=== PATIENT | female | born 1935 | race Caucasian/White ===

== ENCOUNTER → 2017-05-23 | Outpatient (CLI) | payer OTHER ==
[~2017-05-23] MED LIST: ADVIN25/60 INH; ALBU0.08 INH; ASPEC81 PO; ATOR-26 PO; BIOT1CAP8 PO; BSP5 PO; CALC600T9 PO; CETI10TA10 PO; CHOLCAP5 PO; DIPH25CA37 PO; FLNIN NAE; FLUT110A INH; HYDR12.55 PO; IMDSR30 PO; LISI5TAB PO; METO100T44 PO; NTRGSL/4 UT; OXYC5TAB PO; PANT40TA PO; PHYT100T PO; PREG150C PO; PREG1CAP28 PO; RSTOPS OP; TEARS PLUS OP; VITAMIN B12 PO; osteo bioflex PO
[2017-05-23 17:54] LABS: BASO % 0.9 %; BASO ABS # 0.05 K/uL (0-0.2); EOS % 6.2 %; EOS ABS # 0.35 K/uL (0-0.5); HEMATOCRIT 44.7 % (37-47); HEMOGLOBIN 14.2 g/dL (12.0-16.0); IG# 0.01 K/uL (0.00-0.02); LYMPH % 23.8 %; LYMPH ABS # 1.34 K/uL (1.2-3.4); MEAN CELL VOLUME 90.1 fL (80-100); MEAN CORPUSCULAR HEMOGLOBIN 28.6 pg (25-34); MEAN CORPUSCULAR HGB CONC 31.8 g/dl (32-36); MONO % 9.6 %; MONO ABS # 0.54 K/uL (0.11-0.59); NEUT % 59.3 %; NEUT ABS # 3.34 K/uL (1.4-6.5); PLATELET COUNT 210 K/uL (130-400); RED CELL DISTRIBUTION WIDTH CV 14.6 % (11.5-14.5); WHITE BLOOD COUNT 5.63 K/uL (4.8-10.8)
[2017-05-23 18:27] LABS: ALBUMIN 3.9 gm/dl (3.4-5.0); ALT/SGPT 27 U/L (12-78); BLOOD UREA NITROGEN 12 mg/dl (7-18); CALCIUM 10.1 mg/dl (8.5-10.1); CARBON DIOXIDE 33 mmol/L (21-32); CHOLESTEROL 146 mg/dl (0-200); CREATININE 1.12 mg/dl (0.60-1.20); GLUCOSE 94 mg/dl (70-99); POTASSIUM 3.8 mmol/L (3.5-5.1); SODIUM 140 mmol/L (136-145)
[2017-05-23 18:30] LABS: ALKALINE PHOSPHATASE 56 U/L (45-117); AST/SGOT 21 U/L (15-37); LDL CHOLESTEROL CALCULATED 58 mg/dl; TOTAL PROTEIN 7.3 gm/dl (6.4-8.2)
== END | disposition home or self-care (01) ==
LOC: C.LABMFLN 11:28
PROVIDERS: ATTEND Family Medicine
DX: I25.10 Atherosclerotic heart disease of native coronary artery without angina pectoris (principal); E55.9 Vitamin D deficiency, unspecified; R73.09 Other abnormal glucose; E78.5 Hyperlipidemia, unspecified; I10 Essential (primary) hypertension

== ENCOUNTER → 2017-10-06 | Outpatient (CLI) | payer OTHER | END | disposition home or self-care (01) | LOC: C.LABMFLN 15:41 | PROVIDERS: ATTEND Family Medicine | DX: L50.9 Urticaria, unspecified (principal) ==